=== PATIENT | male | born 1975 | race Caucasian/White ===

== ENCOUNTER 2018-03-14 10:14 | Emergency (ER) | payer BC ==
[~2018-03-14] VITALS: Ht 180.3 cm; Wt 70.3 kg
[2018-03-14] MEDS ORDERED: Ketorolac 30mg Inj IV ONE (10:45)
[2018-03-14] MEDS ORDERED: Morphine Sulfate 4mg/ml Inj IVP ONE (10:45)
--- NOTE | 2018-03-14 10:52 | Emergency Room Report ---
History of Present Illness General Chief Complaint: Back Pain-No Injury Source: Patient Present Illness HPI 43-year-old male presents ED complaining of left flank pain. Started this morning. Sudden onset. Sharp. 10 out of 10. Nonradiating. History of kidney stones. States this feels acute kidney stone. Denies fevers or chills. Denies nausea or vomiting. Denies chest pain or shortness of breath. No other aggravating relieving factors. Denies any other associated symptoms Allergies: Coded Allergies: No Known Allergies (Unverified , 03/14/18) Patient History Past Medical History: none Past Surgical History: none Pertinent Family History: none Social History: Denies: smoking, alcohol use, drug use Immunizations: UTD Reviewed Nursing Documentation: PMH: Agreed; PSxH: Agreed Nursing Documentation-PMH Past Medical History: No History, Except For Review of Systems All Other Systems: negative except mentioned in HPI Physical Exam Vital Signs Date Time Temp Pulse Resp B/P (MAP) Pulse Ox O2 Delivery O2 Flow Rate FiO2 03/14/18 10:18 97.7 81 22 138/65 93 Room Air 97.7 Sp02 EP Interpretation: reviewed, normal General Appearance: alert, GCS 15, non-toxic, moderate distress Head: normocephalic, atraumatic Eyes: bilateral eye normal inspection, bilateral eye PERRL ENT: hearing grossly normal, normal pharynx, no angioedema, normal voice Neck: full range of motion, supple/symm/no masses Respiratory: chest non-tender, lungs clear, normal breath sounds, speaking full sentences Cardiovascular #1: regular rate, rhythm, no edema Cardiovascular #2: 2+ carotid (R), 2+ carotid (L), 2+ radial (R), 2+ radial (L) , 2+ dorsalis pedis (R), 2+ dorsalis pedis (L) Gastrointestinal: normal bowel sounds, non tender, soft, non-distended, no guarding, no rebound Rectal: deferred Genitourinary: normal inspection, CVA tenderness (L) Musculoskeletal: back normal, gait/station normal, normal range of motion, non- tender Neurologic: alert, oriented x3, responsive, motor strength/tone normal, sensory intact, speech normal Psychiatric: judgement/insight normal, memory normal, mood/affect normal, no suicidal/homicidal ideation Reflexes: 3+ bicep (R), 3+ bicep (L), 3+ tricep (R), 3+ tricep (L), 3+ knee (R) , 3+ knee (L) Skin: normal color, no rash, warm/dry, well hydrated Lymphatic: no adenopathy Medical Decision Making Diagnostic Impression: Primary Impression: Kidney stone ER Course Hospital Course 43-year-old M presents to ED with L flank pain Differential diagnosis includes-appendicitis, cholecystitis, kidney stone, pyelonephritis Clinical course Patient placed on stretcher. After initial history and physical I ordered labs , IV fluids, pain medications and CT scan Labs - no leukocytosis, electrolytes ok, LFTs normal CT scan shows 3-4mm stone in at Left UVJ with mild hydronephrisis/hydroureter Upon reassessment, patient states pain has improved. Given improvement in symptoms, I believe patient can be safely discharged to home. Patient agrees with plan I will provide with urology referral and PMD referrals I feel this is a highly complex case requiring extensive working including EKG/ Rhythm strip, Xray/CT/US, Blood/urine lab work, repeat exams while in ED, and administration of strong opiates/narcotics for pain control, admission to hospital or close patient follow up. Diagnosis - kidney stone Stable and discharged to home with Rx Motrin, Berkey, Flomax. Followup with PMD/ urology. Return to ED if symptoms recur or worsen Labs Test 03/14/18 10:35 White Blood Count 7.5 K/UL (4.8-10.8) Red Blood Count 5.07 M/UL (4.70-6.10) Hemoglobin 16.6 G/DL (14.2-18.0) Hematocrit 49.5 % (42.0-52.0) Mean Corpuscular Volume 98 FL (80-99) Mean Corpuscular Hemoglobin 32.8 PG (27.0-31.0) Mean Corpuscular Hemoglobin Concent 33.6 G/DL (32.0-36.0) Red Cell Distribution Width 11.9 % (11.6-14.8) Platelet Count 376 K/UL (150-450) Mean Platelet Volume 6.1 FL (6.5-10.1) Neutrophils (%) (Auto) 48.9 % (45.0-75.0) Lymphocytes (%) (Auto) 36.7 % (20.0-45.0) Monocytes (%) (Auto) 10.8 % (1.0-10.0) Eosinophils (%) (Auto) 2.0 % (0.0-3.0) Basophils (%) (Auto) 1.5 % (0.0-2.0) Sodium Level 139 MMOL/L (136-145) Potassium Level 4.3 MMOL/L (3.5-5.1) Chloride Level 101 MMOL/L (98-107) Carbon Dioxide Level 26 MMOL/L (21-32) Anion Gap 13 mmol/L (5-15) Blood Urea Nitrogen 12 mg/dL (7-18) Creatinine 1.2 MG/DL (0.55-1.30) Estimat Glomerular Filtration Rate > 60 mL/min (>60) Glucose Level 87 MG/DL (74-106) Calcium Level 10.2 MG/DL (8.5-10.1) Total Bilirubin 0.8 MG/DL (0.2-1.0) Aspartate Amino Transf (AST/SGOT) 22 U/L (15-37) Alanine Aminotransferase (ALT/SGPT) 33 U/L (12-78) Alkaline Phosphatase 101 U/L (46-116) Total Protein 8.3 G/DL (6.4-8.2) Albumin 4.5 G/DL (3.4-5.0) Globulin 3.8 g/dL Albumin/Globulin Ratio 1.2 (1.0-2.7) Lipase 155 U/L (73-393) (1) Kidney stone CT/MRI/US Diagnostic Results CT/MRI/US Diagnostic Results : Imaging Test Ordered: CT A/P Impression Mild left hydroureteronephrosis to the level of a 3-4 mm calculus at the left ureterovesicular junction. Last Vital Signs Date Time Temp Pulse Resp B/P (MAP) Pulse Ox O2 Delivery O2 Flow Rate FiO2 03/14/18 10:42 97.7 03/14/18 10:18 81 22 138/65 93 Room Air Status: improved Disposition: HOME, SELF-CARE Condition: Stable Scripts Ondansetron Odt* (ZOFRAN ODT*) 4 Mg Tab.rapdis 4 MG BC EVERY 8 HOURS, #20 TAB 0 Refills Prov: Darrel Ramirez MD 03/14/18 Tamsulosin Hcl (TAMSULOSIN HCL*) 0.4 Mg Cap.er.24h 0.4 MG ORAL BEDTIME, #10 CAP Prov: Darrel Ramirez MD 03/14/18 Hydrocodone Bit/Acetaminophen 5-325* (NORCO 5-325*) 1 Each Tablet 1 TAB ORAL Q6H PRN for For Pain, #10 TAB 0 Refills Prov: Darrel Ramirez MD 03/14/18 Ibuprofen* (MOTRIN*) 600 Mg Tablet 600 MG ORAL Q8H PRN for For Pain, #30 TAB 0 Refills Prov: Darrel Ramirez MD 03/14/18 Darrel Ramirez MD Mar 14, 2018 10:52
[2018-03-14] MEDS ORDERED: Morphine Sulfate 10mg/ml Inj IVP ONE (11:00)
[2018-03-14 11:04] LABS: BASOPHILS % (AUTO) 1.5 % (0.0-2.0); HEMATOCRIT 49.5 % (42.0-52.0); HEMOGLOBIN 16.6 G/DL (14.2-18.0); LYMPHOCYTES % (AUTO) 36.7 % (20.0-45.0); MEAN CORPUSCULAR VOLUME 98 FL (80-99); MONOCYTES % (AUTO) 10.8 % (1.0-10.0); NEUTROPHILS % (AUTO) 48.9 % (45.0-75.0); PLATELET COUNT 376 K/UL (150-450); RED BLOOD COUNT 5.07 M/UL (4.70-6.10); RED CELL DISTRIBUTION WIDTH 11.9 % (11.6-14.8); WHITE BLOOD COUNT 7.5 K/UL (4.8-10.8)
[2018-03-14 11:15] LABS: ANION GAP 13 mmol/L (5-15); BLOOD UREA NITROGEN 12 mg/dL (7-18); CALCIUM 10.2 MG/DL (8.5-10.1); CARBON DIOXIDE 26 MMOL/L (21-32); CHLORIDE 101 MMOL/L (98-107); CREATININE 1.2 MG/DL (0.55-1.30); POTASSIUM 4.3 MMOL/L (3.5-5.1); SODIUM 139 MMOL/L (136-145)
[2018-03-14 11:19] LABS: ALANINE AMINOTRANSFERASE 33 U/L (12-78); ALBUMIN 4.5 G/DL (3.4-5.0); ALBUMIN/GLOBULIN RATIO 1.2 (1.0-2.7); ALKALINE PHOSPHATASE 101 U/L (46-116); ASPARTATE AMINO TRANSFERASE 22 U/L (15-37); BILIRUBIN,TOTAL 0.8 MG/DL (0.2-1.0)
[2018-03-14 11:26] VITALS: BP 106/57
--- NOTE | 2018-03-14 11:55 | Diagnostic Imaging Report ---
INDICATION: Flank pain TECHNIQUE: Multiple, contiguous axial cuts of the abdomen and pelvis are obtained from the lung bases to the ischial tuberosities. Sagittal and coronal reformatted images are available. One or more of the following dose reduction techniques were used: automated exposure control, adjustment of the mA and/or kV according to patient size, use of iterative reconstruction technique. COMPARISON: None FINDINGS: The lung bases are clear. A few scattered subcentimeter areas of hypodensity are seen within the liver, may represent cysts or less likely biliary hamartomas. The spleen is normal in size and free of mass lesions. The gallbladder, bile ducts and pancreas are normal. The adrenal gland are unremarkable. The kidneys are normal in size and contour. Mild left hydroureteronephrosis to the level of a 3-4 mm calculus at the left ureterovesicular junction. The distal esophagus contains fluid. The appendix is unremarkable, as is the rest of the GI tract. Aorta is normal caliber. No adenopathy or extraluminal air. The osseous structures are normal IMPRESSION: 1. Mild left hydroureteronephrosis to the level of a 3-4 mm calculus at the left ureterovesicular junction. 2. Few scattered subcentimeter areas of hypodensity are seen within the liver, may represent cysts or less likely biliary hamartomas. 3. The distal esophagus contains fluid.
[2018-03-14] MEDS ORDERED: IBUPROFEN600 MG ORAL (12:08)
[2018-03-14] MEDS ORDERED: ONDANSETRON ODT4 MG BC (12:08)
[2018-03-14] MEDS ORDERED: NORCO 5-325 TA1 EACH ORAL (12:08)
[2018-03-14] MEDS ORDERED: TAMSULOSIN HCL0.4 MG ORAL (12:08)
== END 2018-03-14 12:20 | disposition home or self-care (01) ==
LOC: EMR 10:50
DX: N13.2 Hydronephrosis with renal and ureteral calculous obstruction (principal)
CPT/HCPCS: 36415; 74176; 80053; 83690; 85025; 96361; 96374; 96375; 99284; J1885; J2270; J2405; 96360

== ENCOUNTER 2018-12-07 00:58 | Emergency (ER) | payer BC ==
[~2018-12-07] VITALS: Ht 180.3 cm; Wt 72.6 kg
[~2018-12-07 00:58] MED LIST: IBUPROFEN600 MG ORAL; NORCO 5-325 TA1 EACH ORAL; ONDANSETRON ODT4 MG BC; TAMSULOSIN HCL0.4 MG ORAL
[2018-12-07] MEDS ORDERED: Morphine Sulfate 4mg/ml Inj (IV USE ONLY) IVP ONE (01:15)
--- NOTE | 2018-12-07 01:25 | NUR ---
ED Nurse Note: Patient presents with left flank pain 10/10, moaning, screaming and balled up in a knot. family at bedside.
[2018-12-07] MEDS ORDERED: NKM (01:27)
[2018-12-07 01:30] VITALS: BP 109/60
[2018-12-07] MEDS ORDERED: Ketorolac 30mg Inj IV ONE (01:45)
[2018-12-07] MEDS ORDERED: HYDROmorphone 1mg/ml Carpuject IVP ONE (01:45)
[2018-12-07 02:01] LABS: BASOPHILS % (AUTO) 1.3 % (0.0-2.0); EOSINOPHILS % (AUTO) 1.7 % (0.0-3.0); HEMATOCRIT 45.4 % (42.0-52.0); HEMOGLOBIN 15.6 G/DL (14.2-18.0); LYMPHOCYTES % (AUTO) 41.3 % (20.0-45.0); MEAN CORPUSCULAR VOLUME 100 FL (80-99); NEUTROPHILS % (AUTO) 46.6 % (45.0-75.0); PLATELET COUNT 341 K/UL (150-450); RED BLOOD COUNT 4.54 M/UL (4.70-6.10); RED CELL DISTRIBUTION WIDTH 12.1 % (11.6-14.8); WHITE BLOOD COUNT 8.4 K/UL (4.8-10.8)
[2018-12-07 02:04] LABS: ANION GAP 12 mmol/L (5-15); BLOOD UREA NITROGEN 16 mg/dL (7-18); CALCIUM 9.4 MG/DL (8.5-10.1); CARBON DIOXIDE 29 MMOL/L (21-32); CHLORIDE 102 MMOL/L (98-107); POTASSIUM 4.1 MMOL/L (3.5-5.1); SODIUM 143 MMOL/L (136-145)
[2018-12-07 02:08] LABS: ALANINE AMINOTRANSFERASE 31 U/L (12-78); ALBUMIN 4.2 G/DL (3.4-5.0); ALBUMIN/GLOBULIN RATIO 1.1 (1.0-2.7); ALKALINE PHOSPHATASE 94 U/L (46-116); ASPARTATE AMINO TRANSFERASE 26 U/L (15-37); BILIRUBIN,TOTAL 0.2 MG/DL (0.2-1.0)
--- NOTE | 2018-12-07 02:27 | NUR ---
ED Nurse Note: Patient released to radiology for CT of the abdomen/pelvis no contrast.
--- NOTE | 2018-12-07 02:38 | NUR ---
ED Nurse Note: Patient returned from CT.
--- NOTE | 2018-12-07 03:00 | NUR ---
ED Nurse Note: Patient is calm, being comforted by his mom. dad and girlfriend at bedside. Patient vital signs are stable and has no complaints of pain at this time.
[2018-12-07] MEDS ORDERED: IBUPROFEN600 MG ORAL (03:33)
[2018-12-07] MEDS ORDERED: NORCO 5-325 TA1 EACH ORAL (03:33)
[2018-12-07] MEDS ORDERED: ONDANSETRON ODT4 MG BC (03:33)
[2018-12-07] MEDS ORDERED: FLOMAX0.4 MG ORAL (03:33)
[2018-12-07 03:45] VITALS: BP 109/60
--- NOTE | 2018-12-07 03:45 | NUR ---
ED Nurse Note: Patient cleared for discharge, all non-narcotic medication prescriptions faxed to pharmacy. patient is A&Ox4, ambulatory with steady gait, ID band removed, IV removed, patient and girlfriend verbalized understanding of discharge instructions. Patient rendered requested antacid prior to departure. Patient departed with all belongings accompanied by his mom, dad and girlfriend.
--- NOTE | 2018-12-07 04:32 | Emergency Room Report ---
History of Present Illness General Chief Complaint: Abdominal Pain Source: Patient, Family Member Present Illness HPI 43-year-old male presents ED for evaluation. Complaining of right flank pain. Started around midnight. History of kidney stones. Pain is sharp, 10 out of 10 , radiating towards the groin. Notes nausea and vomiting. Denies fevers or chills. No other aggravating relieving factors. Denies any other associated symptoms. Allergies: Coded Allergies: No Known Allergies (Unverified , 03/14/18) Patient History Past Medical History: other - kidney stones Past Surgical History: none Pertinent Family History: none Social History: Denies: smoking, alcohol use, drug use Immunizations: UTD Reviewed Nursing Documentation: PMH: Agreed; PSxH: Agreed Review of Systems All Other Systems: negative except mentioned in HPI Physical Exam Vital Signs Date Time Temp Pulse Resp B/P (MAP) Pulse Ox O2 Delivery O2 Flow Rate FiO2 12/07/18 01:24 98.4 96 18 109/60 94 Room Air Sp02 EP Interpretation: reviewed, normal General Appearance: alert, GCS 15, non-toxic, moderate distress Head: normocephalic, atraumatic Eyes: bilateral eye normal inspection, bilateral eye PERRL ENT: hearing grossly normal, normal pharynx, no angioedema, normal voice Neck: full range of motion, supple/symm/no masses Respiratory: chest non-tender, lungs clear, normal breath sounds, speaking full sentences Cardiovascular #1: regular rate, rhythm, no edema Cardiovascular #2: 2+ carotid (R), 2+ carotid (L), 2+ radial (R), 2+ radial (L) , 2+ dorsalis pedis (R), 2+ dorsalis pedis (L) Gastrointestinal: normal bowel sounds, non tender, soft, non-distended, no guarding, no rebound Rectal: deferred Genitourinary: normal inspection, CVA tenderness (R) Musculoskeletal: back normal, gait/station normal, normal range of motion, non- tender Neurologic: alert, oriented x3, responsive, motor strength/tone normal, sensory intact, speech normal Psychiatric: judgement/insight normal, memory normal, mood/affect normal, no suicidal/homicidal ideation Reflexes: 3+ bicep (R), 3+ bicep (L), 3+ tricep (R), 3+ tricep (L), 3+ knee (R) , 3+ knee (L) Skin: normal color, no rash, warm/dry, well hydrated Lymphatic: no adenopathy Medical Decision Making Diagnostic Impression: Primary Impression: Kidney stone ER Course Hospital Course 43-year-old M presents to ED with R flank pain Differential diagnosis includes-appendicitis, cholecystitis, kidney stone, pyelonephritis Clinical course Patient placed on stretcher. After initial history and physical I ordered labs , IV fluids, pain medications and CT scan Labs - no leukocytosis, electrolytes ok CT scan shows no obstructive uropathy. no hydronephrosis or hydroureter Upon reassessment, patient states pain has improved. Discussed findings with patient and family. Likely passed stone. No evidence of obstruction or infectious process. I believe patient can be safely discharged home at this time. Patient does not have a urologist at this time. We'll provide referrals Safe for discharge close outpatient follow-up I feel this is a highly complex case requiring extensive working including EKG/ Rhythm strip, Xray/CT/US, Blood/urine lab work, repeat exams while in ED, and administration of strong opiates/narcotics for pain control, admission to hospital or close patient follow up. Diagnosis - kidney stone Stable and discharged to home with Rx Motrin, [place], Flomax, zofran. Followup with PMD. Return to ED if symptoms recur or worsen Labs Test 12/07/18 01:20 White Blood Count 8.4 K/UL (4.8-10.8) Red Blood Count 4.54 M/UL (4.70-6.10) Hemoglobin 15.6 G/DL (14.2-18.0) Hematocrit 45.4 % (42.0-52.0) Mean Corpuscular Volume 100 FL (80-99) Mean Corpuscular Hemoglobin 34.5 PG (27.0-31.0) Mean Corpuscular Hemoglobin Concent 34.4 G/DL (32.0-36.0) Red Cell Distribution Width 12.1 % (11.6-14.8) Platelet Count 341 K/UL (150-450) Mean Platelet Volume 6.3 FL (6.5-10.1) Neutrophils (%) (Auto) 46.6 % (45.0-75.0) Lymphocytes (%) (Auto) 41.3 % (20.0-45.0) Monocytes (%) (Auto) 9.0 % (1.0-10.0) Eosinophils (%) (Auto) 1.7 % (0.0-3.0) Basophils (%) (Auto) 1.3 % (0.0-2.0) Sodium Level 143 MMOL/L (136-145) Potassium Level 4.1 MMOL/L (3.5-5.1) Chloride Level 102 MMOL/L (98-107) Carbon Dioxide Level 29 MMOL/L (21-32) Anion Gap 12 mmol/L (5-15) Blood Urea Nitrogen 16 mg/dL (7-18) Creatinine 1.0 MG/DL (0.55-1.30) Estimat Glomerular Filtration Rate > 60 mL/min (>60) Glucose Level 99 MG/DL (74-106) Calcium Level 9.4 MG/DL (8.5-10.1) Total Bilirubin 0.2 MG/DL (0.2-1.0) Aspartate Amino Transf (AST/SGOT) 26 U/L (15-37) Alanine Aminotransferase (ALT/SGPT) 31 U/L (12-78) Alkaline Phosphatase 94 U/L (46-116) Total Protein 7.9 G/DL (6.4-8.2) Albumin 4.2 G/DL (3.4-5.0) Globulin 3.7 g/dL Albumin/Globulin Ratio 1.1 (1.0-2.7) Lipase 236 U/L (73-393) CT/MRI/US Diagnostic Results CT/MRI/US Diagnostic Results : Imaging Test Ordered: CT A/P Impression Innumerable tiny low attenuation foci throughout the hepatic parenchyma are without significant change. Unenhanced solid abdominal organs demonstrate no acute findings. Negative for obstructive uropathy. No acute findings lower GI tract. Normal appendix. Negative for abdominal or pelvic fluid collections. The urinary bladder is mildly distended with mild wall reticulation most commonly seen as sequela of chronic outlet obstruction. No change mild fluid distention of the distal esophagus. Last Vital Signs Date Time Temp Pulse Resp B/P (MAP) Pulse Ox O2 Delivery O2 Flow Rate FiO2 12/07/18 02:14 98.5 12/07/18 01:30 79 18 109/60 94 Room Air Status: improved Disposition: HOME, SELF-CARE Condition: Stable Scripts Tamsulosin HCl (Flomax) 0.4 Mg Cap.er.24h 0.4 MG ORAL DAILY, #10 CAP Prov: Darrel Ramirez MD 12/07/18 Ondansetron Odt* (ZOFRAN ODT*) 4 Mg Tab.rapdis 4 MG BC EVERY 6 HOURS PRN for Nausea & Vomiting, #30 TAB 0 Refills Prov: Darrel Ramirez MD 12/07/18 Hydrocodone Bit/Acetaminophen 5-325* (NORCO 5-325*) 1 Each Tablet 1 TAB ORAL Q6H PRN for For Pain, #10 TAB 0 Refills Prov: Darrel Ramirez MD 12/07/18 Ibuprofen* (MOTRIN*) 600 Mg Tablet 600 MG ORAL Q8H PRN for For Pain, #30 TAB 0 Refills Prov: Darrel Ramirez MD 12/07/18 Referrals: Gen Cage MD, Faisal M.D. Malhotra, Sameer M.D. Patient Instructions: Kidney Stones, [id number] Darrel Ramirez MD Dec 07, 2018 04:32
--- NOTE | 2018-12-07 09:30 | Diagnostic Imaging Report ---
Since 03/27/2018 Indication: Left flank pain for 2 days Technique: Spiral acquisitions obtained through the abdomen and pelvis. No oral or IV contrast utilized, per urinary stone protocol. Multiplanar reconstructions were generated. Total dose length product 708 mGycm. CTDIvol(s) 13.68 mGy. Dose reduction achieved using automated exposure control Comparison: 03/14/2018 Findings: No renal or ureteral calculi demonstrated. Previously demonstrated distal left ureteral calculus is no longer evident. No hydronephrosis or hydroureter. Lack of IV contrast limits assessment of the renal parenchyma. No gross renal parenchymal mass or cyst demonstrated. Lack of IV contrast on this assessment of the other solid organs. As previously, the liver demonstrates innumerable subcentimeter low-attenuation lesions which are too small to characterize. Gallbladder, bile ducts, pancreas, spleen, adrenals are unremarkable. No retroperitoneal or mesenteric mass or adenopathy. No pelvic mass or adenopathy. The appendix is normal. No evidence of diverticulosis or diverticulitis. No small bowel distention. No free or loculated intraperitoneal gas or fluid is evident. The included lung bases demonstrate posterior dependent atelectatic changes and some groundglass opacity. The bones are unremarkable. Impression: No definite acute abnormality posterior dependent pulmonary atelectatic changes and groundglass opacity Previously demonstrated left distal ureteral calculus is no longer evident Subcentimeter low-attenuation liver lesions, too small to characterize, most likely benign simple cysts or bile hamartomas; no further follow-up necessary This agrees with the preliminary interpretation provided overnight by [facility] teleradiology service. The CT scanner at [facility] is accredited by the [employer] and the scans are performed using protocols designed to limit radiation exposure to as low as reasonably achievable to attain images of sufficient resolution adequate for diagnostic evaluation.
== END 2018-12-07 03:45 | disposition home or self-care (01) ==
LOC: EMR 01:19
DX: N20.0 Calculus of kidney (principal); Z87.442 Personal history of urinary calculi
CPT/HCPCS: 36415; 74176; 80053; 83690; 85025; 96361; 96374; 96375; 99284; J1170; J1885; J2405; S0028

== ENCOUNTER 2019-08-24 13:39 | Emergency (ER) | payer BC ==
[~2019-08-24] VITALS: Ht 180.3 cm; Wt 76.2 kg
[~2019-08-24 13:39] MED LIST changes: +FLOMAX0.4 MG ORAL; +NKM
[2019-08-24 14:00] VITALS: BP 106/62
--- NOTE | 2019-08-24 14:08 | Emergency Room Report ---
History of Present Illness General Chief Complaint: Pain Present Illness HPI 44-year-old male with history of kidney stones presents with right flank pain started 2 days prior to arrival. Patient had old Flomax which he took yesterday and today with no improvement of symptoms. Patient reports mild hematuria, no dysuria, decreased urination for 2-day duration. Patient denies any fevers, chills, vomiting, bowel changes, or any recent illness. Patient did not take any pain medications today. Allergies: Coded Allergies: AVOCADO (Verified Allergy, Unknown, 08/24/19) Patient History Past Medical History: other PMH Narrative Kidney stones Past Surgical History: none Review of Systems Constitutional: Denies: chills, fever Respiratory: Denies: cough, shortness of breath Cardiovascular: Denies: chest pain, palpitations Gastrointestinal: Reports: other - Flank pain; Denies: diarrhea, vomiting Genitourinary: Reports: hematuria, other - Decreased urine output; Denies: pain Musculoskeletal: Denies: joint swelling Skin: Denies: rash, lesions Neurological: Denies: headache, dizziness Physical Exam Vital Signs Date Time Temp Pulse Resp B/P (MAP) Pulse Ox O2 Delivery O2 Flow Rate FiO2 08/24/19 13:54 67 18 106/62 (77) 99 Room Air Sp02 EP Interpretation: reviewed General Appearance: well appearing, no apparent distress, non-toxic Head: normocephalic, atraumatic Eyes: bilateral eye normal inspection ENT: hearing grossly normal, EOM grossly intact, moist mucus membranes Neck: supple Respiratory: lungs clear, normal breath sounds, no respiratory distress, speaking full sentences Cardiovascular #1: regular rate, rhythm, normal capillary refill Cardiovascular #2: 2+ radial (R), 2+ radial (L) Gastrointestinal: non tender, soft, no mass, non-distended, no guarding, no hernia Rectal: deferred Genitourinary: CVA tenderness (R) Musculoskeletal: moves extm spontaneously, no lower extremity edema Neurologic: grossly normal Psychiatric: mood/affect normal Skin: warm/dry, normal turgor Medical Decision Making Diagnostic Impression: Primary Impression: Kidney stone ER Course 44-year-old male presents right flank pain and decreased urination with history of kidney stones Differential includes but is not limited to: Kidney stones, urinary tract infection, cholelithiasis, cholecystitis, intra-abdominal infection, urinary retention, As patient has history of kidney stones most likely cause of right flank pain with decreased urination is repeat episode of renal colic. Plan to treat with pain medication and perform ultrasound to evaluate for hydronephrosis. Laboratory Tests Test 08/24/19 14:05 08/24/19 15:23 White Blood Count 5.7 K/UL (4.8-10.8) Red Blood Count 4.88 M/UL (4.70-6.10) Hemoglobin 16.0 G/DL (14.2-18.0) Hematocrit 47.3 % (42.0-52.0) Mean Corpuscular Volume 97 FL (80-99) Mean Corpuscular Hemoglobin 32.7 PG (27.0-31.0) H Mean Corpuscular Hemoglobin Concent 33.8 G/DL (32.0-36.0) Red Cell Distribution Width 11.8 % (11.6-14.8) Platelet Count 311 K/UL (150-450) Mean Platelet Volume 5.3 FL (6.5-10.1) L Neutrophils (%) (Auto) 58.6 % (45.0-75.0) Lymphocytes (%) (Auto) 26.7 % (20.0-45.0) Monocytes (%) (Auto) 11.8 % (1.0-10.0) H Eosinophils (%) (Auto) 2.0 % (0.0-3.0) Basophils (%) (Auto) 1.0 % (0.0-2.0) Sodium Level 140 MMOL/L (136-145) Potassium Level 4.2 MMOL/L (3.5-5.1) Chloride Level 105 MMOL/L (98-107) Carbon Dioxide Level 28 MMOL/L (21-32) Anion Gap 7 mmol/L (5-15) Blood Urea Nitrogen 11 mg/dL (7-18) Creatinine 1.0 MG/DL (0.55-1.30) Estimate Glomerular Filtration Rate > 60 mL/min (>60) Glucose Level 135 MG/DL (74-106) H Calcium Level 9.5 MG/DL (8.5-10.1) Total Bilirubin 0.9 MG/DL (0.2-1.0) Aspartate Amino Transferase (AST) 20 U/L (15-37) Alanine Aminotransferase (ALT) 26 U/L (12-78) Alkaline Phosphatase 108 U/L (46-116) Total Protein 7.8 G/DL (6.4-8.2) Albumin 4.0 G/DL (3.4-5.0) Globulin 3.8 g/dL Albumin/Globulin Ratio 1.1 (1.0-2.7) Lipase 177 U/L (73-393) Urine Color Pale yellow Urine Appearance Cloudy Urine pH 7 (4.5-8.0) Urine Specific [place] 1.010 (1.005-1.035) Urine Protein Negative (NEGATIVE) Urine Glucose (UA) Negative (NEGATIVE) Urine Ketones Negative (NEGATIVE) Urine Blood Negative (NEGATIVE) Urine Nitrite Negative (NEGATIVE) Urine Bilirubin Negative (NEGATIVE) Urine Urobilinogen Normal MG/DL (0.0-1.0) Urine Leukocyte Esterase Negative (NEGATIVE) Lab Results Impression labs wnl. urinarlysis wnl. no signs of infection CT/MRI/US Diagnostic Results CT/MRI/US Diagnostic Results : Impression Procedure: US ABD Complete Indication: Right flank pain, hematuria Technique: Ferraro-scale and duplex images of the upper abdomen were obtained Comparison: No comparison sonograms. Reference made to abdomen pelvis CT dated 12/07/2018 Findings: Gallbladder is nondistended. No definite stones, wall thickening, nor pericholecystic fluid. Sonographic Saldivar's sign is negative. Common bile duct measures 4 mm in diameter. No intrahepatic biliary ductal dilatation. Liver demonstrates normal echogenicity, no focal abnormality. Portal vein and hepatic veins are patent. Pancreas is incompletely visualized due to overlying bowel gas, visualized portions are unremarkable. The spleen is normal in size, demonstrates a 6 mm cyst. This is occult on prior CT scan, even in retrospect. Left kidney measures 11.7 cm in length. Right kidney measures 10.2 cm length. Both kidneys demonstrate normal echogenicity. There is no hydronephrosis. The right kidney demonstrates a peripheral 3 mm echogenic focus. No corresponding abnormality is seen on prior CT scan. The left kidney demonstrates a 4 mm echogenic focus adjacent to the renal sinus. Likewise, no corresponding abnormality seen on prior CT . Abdominal aorta is partially obscured by bowel gas, visualized portions are non-aneurysmal . Impression: Negative for gallstones or dilated bile ducts Bilateral renal echogenic foci, significance of which are uncertain, not evident on 12/2018 CT scan 6 mm splenic cyst Last Vital Signs Date Time Temp Pulse Resp B/P (MAP) Pulse Ox O2 Delivery O2 Flow Rate FiO2 08/24/19 13:54 67 18 106/62 (77) 99 Room Air Reevaluation Impression pts pain improved. pt labs wnl. pts US showed no signs of hydronephorsis. pt dc with followup at [facility] and given recommendation on pain control and return precautions. Disposition: HOME, SELF-CARE Condition: Stable Scripts Tamsulosin HCl (Flomax) 0.4 Mg Cap.er.24h 0.4 MG ORAL DAILY for 5 Days, #5 CAP Prov: Juan Daniel Stahl M.D. 08/24/19 Ibuprofen* (MOTRIN*) 600 Mg Tablet 600 MG ORAL Q6H PRN for For Pain, #30 TAB 0 Refills Prov: Juan Daniel Stahl M.D. 08/24/19 Oxycodone/Acetaminophen 5-325* (PERCOCET 5-325 MG TABLET*) 1 Each Tablet 1 TAB ORAL Q4H PRN for For Pain, #10 TAB 0 Refills Prov: Juan Daniel Stahl M.D. 08/24/19 Patient Instructions: Kidney Stones Additional Instructions: Return to emergency room if you develop fever, worsening pain, or unable to tolerate pain medication Juan Daniel Stahl M.D. Aug 24, 2019 14:08
[2019-08-24] MEDS ORDERED: Morphine Sulfate 4mg/ml Inj (IV USE ONLY) IVP ONE (14:15)
[2019-08-24] MEDS ORDERED: Ketorolac 30mg Inj IV ONE (14:15)
[2019-08-24 14:25] LABS: HEMATOCRIT 47.3 % (42.0-52.0); LYMPHOCYTES % (AUTO) 26.7 % (20.0-45.0); MEAN CORPUSCULAR VOLUME 97 FL (80-99); MONOCYTES % (AUTO) 11.8 % (1.0-10.0); NEUTROPHILS % (AUTO) 58.6 % (45.0-75.0); PLATELET COUNT 311 K/UL (150-450); RED BLOOD COUNT 4.88 M/UL (4.70-6.10); RED CELL DISTRIBUTION WIDTH 11.8 % (11.6-14.8); WHITE BLOOD COUNT 5.7 K/UL (4.8-10.8)
[2019-08-24 14:35] LABS: ANION GAP 7 mmol/L (5-15); BLOOD UREA NITROGEN 11 mg/dL (7-18); CALCIUM 9.5 MG/DL (8.5-10.1); CARBON DIOXIDE 28 MMOL/L (21-32); CHLORIDE 105 MMOL/L (98-107); POTASSIUM 4.2 MMOL/L (3.5-5.1); SODIUM 140 MMOL/L (136-145)
[2019-08-24 14:40] LABS: ALANINE AMINOTRANSFERASE 26 U/L (12-78); ALBUMIN/GLOBULIN RATIO 1.1 (1.0-2.7); ALKALINE PHOSPHATASE 108 U/L (46-116); ASPARTATE AMINO TRANSFERASE 20 U/L (15-37); BILIRUBIN,TOTAL 0.9 MG/DL (0.2-1.0)
[2019-08-24] MEDS ORDERED: HYDROmorphone 1mg/ml Carpuject ONE (15:05)
[2019-08-24] MEDS ORDERED: HYDROmorphone 1mg/ml Carpuject IVP ONE (15:15)
[2019-08-24 15:37] LABS: APPEARANCE,URINE CLOUDY; BILIRUBIN, URINE NEGATIVE (NEGATIVE); COLOR,URINE PALE YELLOW; GLUCOSE, URINE (UA) NEGATIVE (NEGATIVE); KETONES,URINE NEGATIVE (NEGATIVE); LEUKOCYTE ESTERASE ,URINE NEGATIVE (NEGATIVE); NITRITE,URINE NEGATIVE (NEGATIVE); PH,URINE 7 (4.5-8.0); PROTEIN,URINE NEGATIVE (NEGATIVE); UROBILINOGEN,URINE NORMAL MG/DL (0.0-1.0)
[2019-08-24 15:50] VITALS: BP 110/69
[2019-08-24] MEDS ORDERED: IBUPROFEN600 MG ORAL (16:24)
[2019-08-24] MEDS ORDERED: PERCOCET 5-3251 EACH ORAL (16:24)
[2019-08-24] MEDS ORDERED: FLOMAX0.4 MG ORAL (16:25)
[2019-08-24 16:42] VITALS: BP 110/69
--- NOTE | 2019-08-24 18:20 | Diagnostic Imaging Report ---
Indication: Right flank pain, hematuria Technique: Ferraro-scale and duplex images of the upper abdomen were obtained Comparison: No comparison sonograms. Reference made to abdomen pelvis CT dated 12/07/2018 Findings: Gallbladder is nondistended. No definite stones, wall thickening, nor pericholecystic fluid. Sonographic Saldivar's sign is negative. Common bile duct measures 4 mm in diameter. No intrahepatic biliary ductal dilatation. Liver demonstrates normal echogenicity, no focal abnormality. Portal vein and hepatic veins are patent. Pancreas is incompletely visualized due to overlying bowel gas, visualized portions are unremarkable. The spleen is normal in size, demonstrates a 6 mm cyst. This is occult on prior CT scan, even in retrospect. Left kidney measures 11.7 cm in length. Right kidney measures 10.2 cm length. Both kidneys demonstrate normal echogenicity. There is no hydronephrosis. The right kidney demonstrates a peripheral 3 mm echogenic focus. No corresponding abnormality is seen on prior CT scan. The left kidney demonstrates a 4 mm echogenic focus adjacent to the renal sinus. Likewise, no corresponding abnormality seen on prior CT . Abdominal aorta is partially obscured by bowel gas, visualized portions are non-aneurysmal . Impression: Negative for gallstones or dilated bile ducts Bilateral renal echogenic foci, significance of which are uncertain, not evident on 12/2018 CT scan 6 mm splenic cyst
== END 2019-08-24 16:42 | disposition home or self-care (01) ==
LOC: EMR 14:36
DX: N20.0 Calculus of kidney (principal); Z91.018 Allergy to other foods; D73.4 Cyst of spleen
CPT/HCPCS: 36415; 76700; 80053; 81003; 83690; 85025; 96374; 96375; 99284; J1170; J1885; J2270; J2405